=== PATIENT | male | born 1965 | race Caucasian/White ===

== ENCOUNTER 2020-05-27 20:08 | Emergency (ER) | payer MEDICAID, OTHER ==
[~2020-05-27] VITALS: Ht 167.6 cm; Wt 104.5 kg
[~2020-05-27 20:08] MED LIST: ALPR0.5T6 PO; AMLO-150 PO; ASPI81TA45 PO; ATOR-2 PO; ATOR40TA78 PO; CARV-39 PO; CLOP75TA PO; CYCL-259 PO; FENO160T PO; FLUT1AER INH; FOLI-17 PO; HYDR-3245 PO; HYDR-3342 PO; ISOS30TA8 PO; LEVO300T4 PO; LISI-167 PO; LISI40TA PO; LORA-446 PO; LOSA50TA2 PO; METO-99 PO; METO50TA82 PO; NITR0.4T41 SL; OMEP-110 PO; THIA100T67 PO
--- NOTE | 2020-05-27 20:16 | NUR ---
ER PA WAS IN TO SEE PT.
[2020-05-27] MEDS ORDERED: ONDANSETRON ODT 4 MG ONE (20:28)
[2020-05-27] MEDS ORDERED: ONDANSETRON ODT 4 MG PO ONE (20:30)
--- NOTE | 2020-05-27 20:33 | NUR ---
ZOFRAN GIVEN FOR NAUSEA. WATER PROVIDED. PT AMBULATED TO BR WITHOUT DIFFICULTY.
--- NOTE | 2020-05-27 21:16 | NUR ---
SPO2 WAS 85% ON RA. PT PLACED ON 2L O2 NC. RV'WD POC WITH PT.
[2020-05-27] MEDS ORDERED: SODIUM CHLORIDE 0.9% 1,000ML IVBOLUS ONE (21:30)
--- NOTE | 2020-05-27 21:43 | NUR ---
PT REPORTS HE'S "STARTING TO FEEL SOME PALPITATIONS AGAIN". REMAINS SINUS RHYTHM 70s ON MONITOR. ERP NOTIFIED. IV STARTED. PT UP TO BR AGAIN AT THIS TIME.
--- NOTE | 2020-05-27 22:03 | NUR ---
IVF INFUSING. EKG DONE AND LABS SENT. CRACKERS, JUICE & APPLESAUCE PROVIDED.
[2020-05-27 22:04] LABS: BASOPHILS % (AUTO) 1 % (0-1); EOSINOPHILS % (AUTO) 2 % (1-7); LYMPHOCYTES % (AUTO) 35 % (22-44); MEAN CORPUSCULAR HEMOGLOBIN 34.6 pg (27.5-34.5); MEAN CORPUSCULAR HGB CONC 34.2 g/dL (33.2-36.2); MEAN PLATELET VOLUME 7.3 fL (7.4-10.4); MONOCYTES % (AUTO) 5 % (2-9); NEUTROPHILS % (AUTO) 57 % (42-75); PLATELET COUNT 275 x10^3/uL (130-400); RED BLOOD COUNT 4.49 x10^6/uL (4.38-5.82); RED CELL DISTRIBUTION WIDTH 12.7 % (9.4-14.8)
[2020-05-27 22:10] LABS: MD NO
[2020-05-27 22:15] LABS: ALBUMIN 3.9 g/dL (3.4-5.0); ANION GAP 11 mmol/L (5-15); CALCIUM 8.3 mg/dL (8.5-10.1); CHLORIDE 101 mmol/L (98-107); CREATININE 0.86 mg/dL (0.7-1.3)
--- NOTE | 2020-05-27 22:54 | NUR ---
TRISTIAN BLAIR AT FOR RECHECK.
[2020-05-27] MEDS ORDERED: LORazepam 1MG TABLET PO ONE (23:00)
[2020-05-27] MEDS ORDERED: LORazepam 1MG TABLET ONE (23:11)
[2020-05-27 23:15] VITALS: BP 125/65
--- NOTE | 2020-05-27 23:15 | NUR ---
ER PA WAS IN FOR RECHECK. PT MEDICATED WITH ATIVAN PER ORDERS. PT STATES HE FEELS COMFORTABLE GOING HOME WITH RX.
--- NOTE | 2020-05-27 23:49 | NUR ---
Note hannahmary anne in EDM - 05/27/20 at 2351 by BLADE D/C INSTRUCTIONS, MEDS & F/U APPT'S RV'WD WITH PT, HE VERBALIZES UNDERSTANDING. RX GIVEN X2. INSTRUCTED PT NOT TO DRINK ALCOHOL IF TAKING LIBRIUM. INSTRUCTED PT TO RETURN TO ED FOR CHEST PAIN, PALPITATIONS, SOB OR OTHER CONCERNING SYMPTOMS. COMMUNIY DETOX RESOURCES PROVIDED TO PT. PT AMBULATED OUT OF ED WITHOUT DIFFICULTY.
--- NOTE | 2020-05-27 23:52 | NUR ---
D/C INSTRUCTIONS, MEDS & F/U APPT'S RV'WD WITH PT, HE VERBALIZES UNDERSTANDING. RX GIVEN X2. INSTRUCTED PT NOT TO DRINK ALCOHOL IF TAKING LIBRIUM. INSTRUCTED PT TO RETURN TO ED FOR CHEST PAIN, PALPITATIONS, SOB OR OTHER CONCERNING SYMPTOMS. COMMUNIY DETOX RESOURCES PROVIDED TO PT. PT AMBULATED OUT OF ED WITHOUT DIFFICULTY.
== END 2020-05-27 23:58 | disposition home or self-care (01) ==
LOC: ED 20:49
DX: F10.130 Alcohol abuse with withdrawal, uncomplicated (principal); F41.1 Generalized anxiety disorder; R94.31 Abnormal electrocardiogram [ECG] [EKG]; J44.9 Chronic obstructive pulmonary disease, unspecified; I25.10 Atherosclerotic heart disease of native coronary artery without angina pectoris; I10 Essential (primary) hypertension; E11.9 Type 2 diabetes mellitus without complications; I25.2 Old myocardial infarction; F17.200 Nicotine dependence, unspecified, uncomplicated; Y90.9 Presence of alcohol in blood, level not specified
CPT/HCPCS: 36415; 80048; 80307; 82040; 85025; 93005; 96360; 96361; 99284; J7030; Q0162